=== PATIENT | male | born 1995 | race Caucasian/White ===

== ENCOUNTER 2024-04-20 17:38 | Emergency (ER) | payer OTHER, SELFPAY ==
[2024-04-20 17:42] VITALS: BP 144/107; PULSE 79; RESP 18; TEMP 36.9; O2SAT 99
--- NOTE | 2024-04-20 18:10 | W.ED.GENAD ---
Discharge Plan Discharge Details Chief Complaint: PsychEval Primary Care Provider: Unknown,Unknown ED Provider: Yunior Patton Home Meds and New Rx's Prescriptions: No Action escitalopram oxalate [Lexapro] 5 mg tablet 25 mg PO DAILY bupropion HCl [Wellbutrin XL] 150 mg tablet extended release 24 hr 150 mg PO DAILY HPI General Date/Time Provider Initiated Documentation: 04/20/24 17:45. HPI Narrative: 28-year-old male history of depression, presents brought in by family for evaluation of suicidal ideations, in the setting of recent psychosocial stressors specifically the suicide of his uncle and some other stressors at home. Patient does have a plan to drive into a tree, spoke to his psychiatrist to does believe that he needs inpatient treatment. Is on Lexapro and Wellbutrin recent change in the last couple of weeks to Wellbutrin extended release. Got has been removed from the home. Related Data Home Medications Medication Instructions Recorded Confirmed bupropion HCl 150 mg 24 hr tablet, 150 mg PO DAILY 04/20/24 04/20/24 extended release (Wellbutrin XL) escitalopram oxalate 5 mg tablet 25 mg PO DAILY 04/20/24 04/20/24 (Lexapro) General Stated Complaint: PsychEval ZHANE: 2 Review of Systems Narrative: Review of Systems Constitutional: negative Eyes: negative ENT: negative Cardiovascular: negative Respiratory: negative Gastrointestinal: negative : negative Musculoskeletal: negative Skin: negative Neurologic: negative Psych: Depression, SI Exam Narrative Exam Narrative: Physical Examination General: alert, awake, cooperative, resting comfortably, no acute distress HEENT: normocephalic, atraumatic; PERRL, EOM intact, conjunctiva normal; no nasal discharge; moist mucous membranes, oral and pharyngeal mucosa normal, tolerating secretions Neck: supple, trachea midline; full ROM Chest: normal to inspection Respiratory: normal respiratory effort, speaking in full sentences Skin: no lesions, rashes or trauma appreciated Neuro: AAOx3, normal speech, moving all extremities Psych: Depression, SI Course Vital Signs Vital signs: Vital Signs Temperature 36.9 C 04/20/24 17:42 Pulse 79 04/20/24 17:42 Respiratory Rate 18 04/20/24 17:42 Blood Pressure 144/107 H 04/20/24 17:42 Pulse Oximetry 99 04/20/24 17:42 Temperature 36.9 C 04/20/24 17:42 Temperature Source Oral 04/20/24 17:42 Pulse 79 04/20/24 17:42 Respiratory Rate 18 04/20/24 17:42 Blood Pressure 144/107 H 04/20/24 17:42 Pulse Oximetry 99 04/20/24 17:42 Oxygen Delivery Method Room Air 04/20/24 17:42 Oxygen Flow Rate 0 04/20/24 17:42 Medical Decision Making 28-year-old male history of depression, presents brought in by family for evaluation of suicidal ideations, in the setting of recent psychosocial stressors specifically the suicide of his uncle and some other stressors at home. Patient does have a plan to drive into a tree, spoke to his psychiatrist to does believe that he needs inpatient treatment. Is on Lexapro and Wellbutrin recent change in the last couple of weeks to Wellbutrin extended release. Got has been removed from the home. Patient resting comfortably calm cooperative. Hemodynamically stable no signs of intoxication trauma or infection. Will have patient evaluated by [facility] human services. Patient currently here on voluntary basis, would recommend inpatient psychiatric placement given degree of symptomatology and recommendation of patient's outpatient psychiatrist 22: 54 patient was comfortably no acute distress evaluated by [facility] human services will stay for voluntary placement. Patient's home meds to be ordered Quality:SDOH Health Related Social Needs: No Data to Display [facility] Social History Smoking risk assessment performed?: No
[2024-04-20] MEDS: Nicotine 14 MG/24 HR PATCH TD (21:28)
[2024-04-20] MEDS: Nicotine 2 MG GUM CH (21:29)
[2024-04-20] MEDS: LORazepam 0.5 MG TAB PO (21:41)
[2024-04-20 21:43] LABS: *AMPHETAMINES SCREEN URINE Negative (Negative); *BARBITURATES SCREEN URINE Negative (Negative); *BENZODIAZEPINES SCREEN URINE Negative (Negative); Cannabinoids THC Negative (Negative); Cocaine Screen,Urine Negative (Negative); METHADONE URINE SCREEN Negative (Negative); OPIATES URINE SCREEN Negative (Negative)
[2024-04-20 21:44] LABS: Tricyclic Antidepressants Negative (Negative)
--- NOTE | 2024-04-20 23:59 | W.EDPROG ---
Date of service: 04/20/24 Time of Service: 23:15 Medical Decision Making This patient was signed out to me. Please see previous notes for H&P and initial eval. In brief, 28yo M presenting voluntary with SI, plan to drive car into tree. Medically cleared, pending inpatient placement. Overnight appeared to be sleeping. Did not wake for assessment. Signed out to oncoming physician, plan remains as above. Quality:SDOH Health Related Social Needs: No Data to Display Sign Out Sign Out Data: Sign Out Comment: depression SI, voluntary awaiting placement; home meds ordered Last updated by Yunior Patton MD at 04/20/24 22:56 Discharge Plan Discharge Details Chief Complaint: PsychEval Primary Care Provider: Unknown,Unknown ED Provider: Gita Escobedo Home Meds and New Rx's Prescriptions: No Action escitalopram oxalate [Lexapro] 5 mg tablet 25 mg PO DAILY bupropion HCl [Wellbutrin XL] 150 mg tablet extended release 24 hr 150 mg PO DAILY
--- NOTE | 2024-04-21 07:19 | W.EDPROG ---
Date of service: 04/21/24 Time of Service: 07:19 Medical Decision Making Patient seeking voluntary placement for depression and SI, no reported issues on previous shift and currently calm and cooperative with no acute complaints. Will continue to monitor until safe disposition found Quality:SDOH Health Related Social Needs: No Data to Display Sign Out Sign Out Data: Sign Out Comment: depression SI, voluntary awaiting placement; home meds ordered Last updated by Yunior Patton MD at 04/20/24 22:56 Sign Out Comment: SI, voluntary, medically cleared, home meds in, pending placement. no behavioral issues Last updated by Gita Escobedo MD at 04/21/24 05:22 Discharge Plan Discharge Details Chief Complaint: PsychEval Primary Care Provider: Unknown,Unknown ED Provider: John Michael Home Meds and New Rx's Prescriptions: No Action escitalopram oxalate [Lexapro] 5 mg tablet 25 mg PO DAILY bupropion HCl [Wellbutrin XL] 150 mg tablet extended release 24 hr 150 mg PO DAILY
[2024-04-21] MEDS: buPROPion-XL 150 MG TABCR PO (09:12)
[2024-04-21] MEDS: Nicotine 14 MG/24 HR PATCH TD (09:12)
[2024-04-21] MEDS: Nicotine 2 MG GUM CH (09:12)
[2024-04-21] MEDS: Escitalopram 20 MG TAB PO (09:13)
[2024-04-21 09:23] VITALS: BP 125/88; PULSE 82; RESP 18; TEMP 36.4; O2SAT 97
--- NOTE | 2024-04-21 09:37 | W.EDPROG ---
Date of service: 04/21/24 Time of Service: 09:37 Medical Decision Making Patient stable, spoke with ANDI Honeycutt at [facility] reviewed the case and accepted to their facility pending nursing or send setting up of transportation Quality:[facility] Health Related Social Needs: No Data to Display Sign Out Sign Out Data: Sign Out Comment: depression SI, voluntary awaiting placement; home meds ordered Last updated by Yunior Patton MD at 04/20/24 22:56 Sign Out Comment: SI, voluntary, medically cleared, home meds in, pending placement. no behavioral issues Last updated by Gita Escobedo MD at 04/21/24 05:22 Discharge Plan Disposition Specific Psychiatric Facility: [facility] Condition: Stable Discharge Details Chief Complaint: PsychEval Clinical Impression: Suicidal ideation Primary Care Provider: Unknown,Unknown ED Provider: John Michael Home Meds and New Rx's Prescriptions: No Action escitalopram oxalate [Lexapro] 5 mg tablet 20 mg PO DAILY bupropion HCl [Wellbutrin XL] 150 mg tablet extended release 24 hr 150 mg PO DAILY
== END 2024-04-21 12:49 ==
PROVIDERS: Emergency Medicine; Emergency Provider Emergency Medicine
DX: R45.851 Suicidal ideations (principal); F32.A Depression, unspecified
CPT/HCPCS: 00123; 80307; 99285